=== PATIENT | female | born 1955 | race Caucasian/White ===

== ENCOUNTER → 2016-10-17 | Outpatient (CLI) | payer BC ==
[~2016-10-17] MED LIST: MULT-506 PO; NITR-5 PO; PHEN-876 PO
--- NOTE | 2016-10-17 11:24 | DIAGNOSTIC IMAGING REPORT ---
RENAL ULTRASOUND HISTORY: Renal cyst N28.1 Renal [id number] COMPARISON: 08/05/2014 FINDINGS: Right kidney: Several renal cysts essentially unchanged from the prior exam. No evidence for renal hydronephrosis. Normal corticomedullary differentiation and cortical thickness. Left kidney: Several left renal cysts also unchanged from the prior exam. Normal corticomedullary differentiation and cortical thickness. Bladder: No bladder wall thickening. The bilateral ureteral jets were identified. IMPRESSION: Multiple bilateral renal cysts. No major change in the prior study. Containing internal septations which also appear unchanged. Electronically signed by: Saran Gambino M.D. 10/17/2016 11:21 AM Dictated Date/Time: 10/17/2016 11:19 AM
== END | disposition home or self-care (01) ==
LOC: C.ULTR 10:36
PROVIDERS: ATTEND Urology
DX: N28.1 Cyst of kidney, acquired (principal)

== ENCOUNTER → 2016-10-28 | Outpatient (CLI) | payer BC | END | disposition home or self-care (01) | LOC: C.PATHSPEC 17:30 | PROVIDERS: ATTEND Urology | DX: R31.29 Other microscopic hematuria (principal); N28.1 Cyst of kidney, acquired ==

== ENCOUNTER → 2017-04-28 | Outpatient (CLI) | payer BC ==
[2017-04-28 19:16] LABS: THYROID STIMULATING HORMONE 0.821 uIu/ml (0.300-4.500)
== END | disposition home or self-care (01) ==
LOC: C.LAB 18:10
PROVIDERS: ATTEND Internal Medicine Endocrinology, Diabetes & Metabolism
DX: E06.3 Autoimmune thyroiditis (principal); E04.9 Nontoxic goiter, unspecified; E03.9 Hypothyroidism, unspecified